=== PATIENT | male | born 1990 | race African-American/Black ===

== ENCOUNTER 2019-04-12 19:50 | Inpatient (IN) ==
[2019-04-12] MEDS ORDERED: KETOROLAC TROMETHAMINE 15 MG/ML VIAL IV STA (20:13)
[2019-04-12] MEDS ORDERED: cefTRIAXone SODIUM 1,000 MG/50 ML BAG IV STA (20:13)
[2019-04-12] MEDS ORDERED: LIDOCAINE HCL 1% 20 ML VIAL INFIL ONE (20:14)
[2019-04-12] MEDS ORDERED: SODIUM CHLORIDE 0.9% 1000ML 1,000 ML IV SCH (20:15)
[2019-04-12 20:52] LABS: Basophils # (auto) 0.01 K/uL (0-0.2); Basophils % (auto) 0.2 %; Eosinophils # (auto) 0.01 K/uL (0-0.5); Eosinophils % (auto) 0.2 %; Hematocrit (blood only) 44.7 % (42-52); Hemoglobin 15.9 g/dL (14.0-18.0); Immature Granulocytes # (auto) 0.03 K/uL (0.00-0.02); Immature Granulocytes % (auto) 0.5 %; Lymphocytes # (auto) 0.89 K/uL (1.2-3.4); Lymphocytes % (auto) 15.2 %; Mean Corpuscular Hgb Conc 35.6 g/dL (32-36); Mean Platelet Volume 9.2 fL (7.4-10.4); Monocytes # (auto) 0.49 K/uL (0.11-0.59); Monocytes % (auto) 8.4 %; Neutrophils # (auto) 4.43 K/uL (1.4-6.5); Neutrophils % (auto) 75.5 %; Platelet Count 227 K/uL (130-400); RDW Coefficient of Variation 13.1 % (11.5-14.5); RDW Standard Deviation 39.2 fL (36.4-46.3); Red Blood Count 5.52 M/uL (4.7-6.1); White Blood Count 5.86 K/uL (4.8-10.8)
[2019-04-12 20:56] LABS: Alanine Aminotransferase 23 U/L (12-78); Albumin Level 3.5 gm/dl (3.4-5.0); Aspartate Aminotransferase 18 U/L (15-37); BUN Creatinine Ratio 9.8 (10-20); Blood Urea Nitrogen 13 mg/dl (7-18); C Reactive Protein 2.64 mg/dl (0-0.29); Calcium 8.7 mg/dl (8.5-10.1); Carbon Dioxide 28 mmol/L (21-32); Chloride 103 mmol/L (98-107); Creatinine Clr Calc Pharmacy 113.1 ml/min; Est GFR (African American) 85.1; Est GFR (Non-African American) 73.4; Glucose 97 mg/dl (70-99); Potassium 3.6 mmol/L (3.5-5.1); Sodium 137 mmol/L (136-145)
[2019-04-12 21:00] LABS: Albumin Globulin Ratio 0.9 (0.9-2); Alkaline Phosphatase 78 U/L (45-117); Bilirubin,Total 0.4 mg/dl (0.2-1); Globulin 3.8 gm/dl (2.5-4.0); Total Protein 7.3 gm/dl (6.4-8.2); Troponin I < 0.015 ng/ml (0-0.045)
--- NOTE | 2019-04-12 22:13 | Emergency Department Note ---
Entered by Liliana Hung acting as a scribe for History of Present Illness General Chief complaint: Fever Stated complaint: FEVER, CHEST TIGHT, TOOTHACHE, HEADACHE Source: patient Mode of arrival: ambulatory Limitations: no limitations History of Present Illness Onset (ago): day(s) 2 Location: face (right-sided lower jaw ) Pain Consistency: + other (worsening ) Maximum Pain Intensity: 9 Relieved By: not by medication (Amoxicillin, Advil) Associated symptoms: + nausea/vomiting (nausea ) Treatments prior to arrival: other (4 Advil ) The patient is a 29 year old male who presents to the ED with complaints of worsening right-side lower jaw pain for 2 days now. The patient states that he also has swelling of his right lower jaw. He reports that he is experiencing occasional nausea. He states that he has a fever of 102. The patient reports that he had a tooth pulled a long time ago and it got infected. He reports that he went to a hospital in [place] where he was prescribed Amoxicillin. He reports that he took it this morning and started to feel warm and sweaty. He states that he took 4 Advil to relieve the pain and felt no relief. The patient denies any drainage from his mouth. Home Medications Home Medications Medication Instructions Recorded Confirmed Type ibuprofen [Advil] 800 mg PO Q8H PRN 04/12/19 04/12/19 History Allergies Allergy/AdvReac Type Severity Reaction Status Date / Time amoxicillin [From Amoxil] AdvReac Mild Nausea Verified 04/12/19 21:05 Past Med/Surg History Medical History No known health problems Family History Other No significant family history Social History Preferred Language: Luxembourgish Feels Safe at Home: Yes Smoking Status: Current every day smoker Review of Systems See HPI for pertinent positives & negatives. and A total of 10 systems reviewed and were otherwise negative Physical Exam Vital Signs Vital Signs - 24 hr 04/12/19 19:54 04/12/19 21:14 04/12/19 22:10 Temperature 38.9 C H 38.9 C H Temperature Source Oral Oral Sepsis Recent Fever Within 48 Hours Yes Sepsis New/Unexplained Change in Mental Status No Sepsis Action Taken by Nursing No Action Required Pulse Rate 100 H Pulse Rate [Finger] 91 H 91 H Pulse Rhythm Regular Pulse Strength Normal Respiratory Rate 20 16 16 Respiratory Effort / Characteristics Non-Labored Spontaneous Respiratory Depth Normal Normal Respiratory Pattern Regular Blood Pressure 139/86 Blood Pressure [Left Arm] 148/83 H 149/92 H Blood Pressure Mean 103 Blood Pressure Mean [Left Arm] 104 111 Blood Pressure Position Sitting Pulse Oximetry 98 97 98 Oxygen Delivery Method Room Air Room Air Room Air 04/12/19 22:48 Temperature 39.0 C H Temperature Source Oral Sepsis Recent Fever Within 48 Hours Sepsis New/Unexplained Change in Mental Status Sepsis Action Taken by Nursing Pulse Rate Pulse Rate [Finger] 90 Pulse Rhythm Pulse Strength Respiratory Rate 16 Respiratory Effort / Characteristics Respiratory Depth Respiratory Pattern Blood Pressure Blood Pressure [Left Arm] 149/92 H Blood Pressure Mean Blood Pressure Mean [Left Arm] 111 Blood Pressure Position Pulse Oximetry 98 Oxygen Delivery Method Room Air GENERAL: Patient is awake alert in no acute distress patient is resting comfortably and showing no signs of anxiety EYES: The conjunctivae are clear. The pupils are round and reactive. EARS, NOSE, MOUTH AND THROAT: There is swelling at the gumline on the right lo wer dentition. There is tenderness over the right lower mandible. NECK: The neck is nontender and supple. Cervical adenopathy was noted on the right. RESPIRATORY: Normal respiratory effort is noted there is no evidence of wheezing rhonchi or rales CARDIOVASCULAR: Regular rate and rhythm noted there no murmurs rubs or gallops normal S1 normal S2 BACK: No midline tenderness or or step-off noted range of motion in flexion extension as well as rotation no signs of muscle spasm noted MUSCULOSKELETAL/EXTREMITIES: There is no evidence of gross deformity full range of motion is noted in the hips and shoulders SKIN: There is no obvious evidence of any rash. There are no petechiae, pallor or cyanosis noted. NEUROLOGIC: Patient is awake alert and oriented x3. Course 2006: Past medical records reviewed. The patient was evaluated in room B10. A complete history and physical exam was performed. 2149: I reevaluated the patient at this time and he is resting comfortably. I drained the abscess in the patient's mouth to relieve the pain in his right lower jaw. 2224: I discussed the patients case with Pretty Mota. He agreed that the patient should be admitted for further management. He also agreed to see the patient tomorrow to complete and an IND. 2239: I discussed the patients case with Pretty Fisher. He agreed to evaluate the patient for further management. Consultations Consultation #1: I discussed the patients case with Pretty Mota. He agreed that the patient should be admitted for further management. He also agreed to see the patient tomorrow to complete and an IND. Time: 22:25 Consultation #2: I discussed the patients case with Pretty Fisher. He agreed to evaluate the patient for further management. Time: 22:39 Administered Medications Morphine Sulfate (Morphine Sulfate) 4 mg IV Q15M PRN PRN Reason: Pain Stop: 04/26/19 22:35 Last Admin: 04/12/19 22:46 Dose: 4 mg Documented by: [id number] Discontinued Medications Acetaminophen (Tylenol) Confirm Administered Dose 1,000 mg .ROUTE .STK-MED ONE Stop: 04/12/19 22:54 Last Admin: 04/12/19 22:54 Dose: 1,000 mg Documented by: [id number] Acetaminophen (Tylenol) 1,000 mg PO NOW STA Stop: 04/12/19 22:56 Last Admin: 04/12/19 22:55 Dose: Not Given Documented by: [id number] Ceftriaxone Sodium (Rocephin) 1,000 mg in 50 mls @ 100 mls/hr IV NOW STA Stop: 04/12/19 20:42 Last Infusion: 04/12/19 21:00 Dose: 0 mls/hr Documented by: [id number] Admin: 04/12/19 20:29 Dose: 100 mls/hr Documented by: [id number] Sodium Chloride (Nss 1000ml) 1,000 mls @ 999 mls/hr IV .Q1H1M ZOEY Stop: 04/12/19 21:15 Last Infusion: 04/12/19 21:30 Dose: 0 mls/hr Documented by: [id number] Admin: 04/12/19 20:29 Dose: 999 mls/hr Documented by: [id number] Ketorolac Tromethamine (Toradol) 15 mg IV NOW STA Stop: 04/12/19 20:14 Last Admin: 04/12/19 20:28 Dose: 15 mg Documented by: [id number] Lidocaine HCl (Xylocaine 1% (Local)) 10 ml INFIL NOW ONE Stop: 04/12/19 20:15 Last Admin: 04/12/19 20:31 Dose: 10 ml Documented by: [id number] Ondansetron HCl (Zofran) 4 mg IV NOW STA Stop: 04/12/19 22:37 Last Admin: 04/12/19 22:45 Dose: 4 mg Documented by: [id number] Medical Decision Making Medical Records Attestation: I reviewed the patient's medical records. Home Medications Current Medication List: was personally reviewed by me Laboratory Data Attestation: I reviewed the patient's lab results. Result diagrams: 04/12/19 20:23 04/12/19 20:23 Lab Results 04/12/19 04/12/19 04/12/19 Range/Units 20:23 20:23 20:23 WBC 5.86 (4.8-10.8) K/uL RBC 5.52 (4.7-6.1) M/uL Hgb 15.9 (14.0-18.0) g/dL Hct 44.7 (42-52) % MCV 81.0 (80-100) fL MCH 28.8 (25-34) pg MCHC 35.6 (32-36) g/dL RDW Std Deviation 39.2 (36.4-46.3) fL RDW Coeff of Gabe 13.1 (11.5-14.5) % Plt Count 227 (130-400) K/uL MPV 9.2 (7.4-10.4) fL Immature Gran % (Auto) 0.5 % Neut % (Auto) 75.5 % Lymph % (Auto) 15.2 % [place] % (Auto) 8.4 % Eos % (Auto) 0.2 % Baso % (Auto) 0.2 % Immature Gran # (Auto) 0.03 H (0.00-0.02) K/uL Neut # (Auto) 4.43 (1.4-6.5) K/uL Lymph # (Auto) 0.89 L (1.2-3.4) K/uL [place] # (Auto) 0.49 (0.11-0.59) K/uL Eos # (Auto) 0.01 (0-0.5) K/uL Baso # (Auto) 0.01 (0-0.2) K/uL ESR 35 H (0-14) mm/hr Sodium 137 (136-145) mmol/L Potassium 3.6 (3.5-5.1) mmol/L Chloride 103 (98-107) mmol/L Carbon Dioxide 28 (21-32) mmol/L Anion Gap 6.0 (3-11) BUN 13 (7-18) mg/dl Creatinine 1.29 (0.6-1.4) mg/dl Est Cr Clr Drug Dosing 113.1 ml/min Est GFR ( Amer) 85.1 Est GFR (Non-Af Amer) 73.4 BUN/Creatinine Ratio 9.8 L (10-20) Glucose 97 (70-99) mg/dl Calcium 8.7 (8.5-10.1) mg/dl Total Bilirubin 0.4 (0.2-1) mg/dl AST 18 (15-37) U/L ALT 23 (12-78) U/L Alkaline Phosphatase 78 (45-117) U/L Troponin I < 0.015 (0-0.045) ng/ml C-Reactive Protein 2.64 H (0-0.29) mg/dl Total Protein 7.3 (6.4-8.2) gm/dl Albumin 3.5 (3.4-5.0) gm/dl Globulin 3.8 (2.5-4.0) gm/dl Albumin/Globulin Ratio 0.9 (0.9-2) ECG Data Indication: other (right lower jaw pain ) Rate (beats per minute): 95 Rhythm: normal sinus Findings: no PAC, no PVC, no ST depression, no ST elevation, no acute ischemic change and no ectopy Comparison ECG Date: no prior available Blood Pressure Blood Pressure Findings: Elevated blood pressure Blood Pressure Disposition: further management by hospitalist [facility] Narrative The patient is a 29-year-old male who presented to the emergency department for an evaluation of dental pain. The patient had very significant dental pain which began a few days ago. 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 The patient presents to the emergency department today with worsening swelling worsening pain and fever. Patient was treated with IV fluids and IV pain medication in the emergency department. He was also started on a different IV antibiotic. A dental block was placed with an attempt made to incise and drain the abscess. There was a cut made along the right lower gumline. There was some bleeding but no significant purulent drainage. The patient was having significant pain and did not tolerate the procedure well. For this reason I discussed his case with the on-call oral maxillofacial specialist. Given the patient's ongoing symptoms he did recommend that we consider keeping the patient in the inpatient setting overnight and he could be evaluated in the morning for possible incision and drainage or possible dental extraction. I discussed this plan with the patient he was agreeable. I also discussed this case with the on-call [facility] hospitalist. They have agreed to evaluate the patient in the emergency department for further management and disposition. Impression & Plan Dental abscess, Fever Discharge Plan Visit Data Chief Complaint: Fever Stated Complaint: FEVER, CHEST TIGHT, TOOTHACHE, HEADACHE ED Provider: Guicho Maxwell Discharge Problem: Dental abscess, Fever Patient Disposition: Being Evaluated by Hospitalist Forms Stand Alone Forms: My [facility] Prescriptions Prescriptions: No Action ibuprofen [Advil] 200 mg Tablet 800 mg PO Q8H PRN (Reason: Fever Or Pain) RF: 0 Referrals Referrals: PCP,NO [Primary Care Provider] - Discharge Problem: Fever Qualifiers: Fever type: unspecified Qualified Code(s): R50.9 - Fever, unspecified The scribe's documentation has been prepared under my direction and personally reviewed by me in its entirety. I confirm that the note above accurately reflects all work, treatment, procedures, and medical decision making performed by me.
[2019-04-12] MEDS ORDERED: MoRPHine SULFATE 4 MG/ML 1 ML CARP\\VIAL IV PRN (22:36)
[2019-04-12] MEDS ORDERED: ONDANSETRON INJ 2 MG/ML 2 ML VIAL IV STA (22:36)
[2019-04-12] MEDS ORDERED: ACETAMINOPHEN 500 MG TAB ONE (22:53)
[2019-04-12] MEDS ORDERED: ACETAMINOPHEN 500 MG TAB PO STA (22:55)
--- NOTE | 2019-04-13 00:07 | History and Physical Report ---
DATE OF ADMISSION: 04/12/2019 CHIEF COMPLAINT: Dental abscess. HISTORY OF PRESENT ILLNESS: This is a 29-year-old male with no past medical history who presents with dental abscess. Patient is having pain in his right side of his lower jaw for the last 3-4 days. 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 He went to outside hospital and was prescribed amoxicillin which he started taking yesterday, but he was not feeling better. Still having swelling and severe pain and was having temperatures, so he came here and was spiking temperature at T-max 39. In the ER, dental block was given and I and D was attempted , but it was not successful. ER physician spoke with oral maxillofacial surgery and advised to be admitted to the hospital and will be evaluated in the a.m. Currently, patient complains of severe pain and asks for pain medications. Has headaches, no blurred visions. Has earaches on the right side, some sore throat, some cough, some mucus coming out. He had some chest pain on the left side, he thinks he pulled a muscle a few days ago. No shortness of breath. No nausea, no vomiting, no abdominal pain. Normal bowel and bladder movements. No blood in the stools or black stools. No burning micturition. No swelling in the legs, no rash. Currently resting comfortably and hemodynamically stable. ALLERGIES: AMOXICILLIN CAUSES NAUSEA. PAST MEDICAL HISTORY: None. PAST SURGICAL HISTORY: Had some tendon repair on his right forearm. MEDICATIONS: None. FAMILY HISTORY: Grandmother had open heart surgery and pacemaker. SOCIAL HISTORY: Smokes a few cigarettes. Last he smoked was 1 week ago. Denies any alcohol use, no drug use. REVIEW OF SYMPTOMS: As per HPI. Rest of review of systems negative. PHYSICAL EXAMINATION: GENERAL: The patient is of moderate build, not in acute distress. VITAL SIGNS: Temperature T-max 39, pulse 90, respiratory rate 16, blood pressure 149/92, oxygen 98% room air. HEENT: No pallor, no icterus. Pupils equal, round, reactive to light. Oral mucosa, difficult to open the mouth, swelling in the right side of the face seen. NECK: No JVD, no neck masses, no carotid bruits. CARDIOVASCULAR: S1, S2 heard, regular rate and rhythm, no murmur, no gallop. RESPIRATORY SYSTEM: Normal AP diameter. No accessory muscle use. No wheezing, no crackles. ABDOMEN: Soft, bowel sounds present. Nontender, no distention. CENTRAL NERVOUS SYSTEM: Cranial nerves II-XII grossly intact. Nonfocal. EXTREMITIES: No edema, no erythema. LABORATORY DATA: WBC 5.8, hemoglobin 15.9, hematocrit 44.7, platelets 227. Sodium 137, potassium 3.6, chloride 103, bicarbonate 28, BUN 13, creatinine 1.29, serum glucose 97, calcium 8.7, total bilirubin 0.4, AST 18, ALT 23, alkaline phosphatase 72. Troponin I less than 0.015. C-reactive protein 2.6. ASSESSMENT AND PLAN: This is a 29-year-old male who presents with right-sided dental abscess. 1. Dental abscess in the right lower jaw. Failed outpatient treatment with amoxicillin. Having fever. Failed attempt in the ER. We will admit to medical floor. Keep him n.p.o., IV fluids, IV Zosyn, IV antiemetics p.r.n., IV pain meds p.r.n. and consult oral maxillofacial surgery in the a.m. 2. Deep venous thrombosis prophylaxis, sequential compression devices for now. 3. Disposition: Admit to medical floor. Expect to discharge home and follow with his family doctor. Level 1 full code. MTDD
[2019-04-13] MEDS ORDERED: PIPERACILL/TAZOBAC CONSULT ACTIVE PRN (00:13)
[2019-04-13] MEDS ORDERED: ACETAMINOPHEN 65 ML IV PRN (00:13)
[2019-04-13] MEDS ORDERED: ONDANSETRON INJ 2 MG/ML 2 ML VIAL IV PRN ×3 (00:13→18:11)
[2019-04-13] MEDS ORDERED: PIPERACILLIN/TAZOBACTAM 3.375 GM in DEXTROSE 5% 100 ML IV SCH (00:13)
[2019-04-13] MEDS ORDERED: PIPERACILLIN/TAZOBACTAM 3.375 GM in DEXTROSE 5% 100 ML IV ONE (00:30)
[2019-04-13] MEDS: D5W AND NSS 1,000 ML IV SCH ×3 (01:10→20:09)
[2019-04-13] MEDS: HYDROmorphone INJ 0.5 MG/0.5 ML SYR IV PRN ×4 (01:10→23:57)
[2019-04-13] MEDS: PIPERACILLIN/TAZOBACTAM 3.375 GM in DEXTROSE 5% 100 ML IV SCH ×3 (05:21→21:57)
[2019-04-13 05:43] LABS: Basophils # (auto) 0.02 K/uL (0-0.2); Basophils % (auto) 0.4 %; Eosinophils # (auto) 0.01 K/uL (0-0.5); Eosinophils % (auto) 0.2 %; Hemoglobin 17.9 g/dL (14.0-18.0); Immature Granulocytes # (auto) 0.01 K/uL (0.00-0.02); Immature Granulocytes % (auto) 0.2 %; Lymphocytes # (auto) 1.12 K/uL (1.2-3.4); Lymphocytes % (auto) 19.9 %; Mean Corpuscular Hgb Conc 35.1 g/dL (32-36); Mean Corpuscular Volume 82.9 fL (80-100); Monocytes # (auto) 0.32 K/uL (0.11-0.59); Monocytes % (auto) 5.7 %; Neutrophils # (auto) 4.15 K/uL (1.4-6.5); Neutrophils % (auto) 73.6 %; Platelet Count 199 K/uL (130-400); RDW Coefficient of Variation 13.1 % (11.5-14.5); Red Blood Count 6.15 M/uL (4.7-6.1); White Blood Count 5.63 K/uL (4.8-10.8)
[2019-04-13 06:01] LABS: BUN Creatinine Ratio 8.6 (10-20); Calcium 8.2 mg/dl (8.5-10.1); Creatinine Clr Calc Pharmacy 108.3 ml/min; Est GFR (African American) 81.2; Est GFR (Non-African American) 70.1; Magnesium 1.9 mg/dl (1.8-2.4); Potassium 3.7 mmol/L (3.5-5.1)
--- NOTE | 2019-04-13 07:00 | Surgery Progress Note ---
Date of Service I will be seeing patient in room 360 bed 1 for evaluation of infection due to teeth I discussed with ED physician last night . Please obtain X Rays=as I need to see condition of the teeth to determine the cause of the facial infection and tooth. Please inform radiology dept that may main concern is the condition of the teeth. April 13, 2019 Results & Data Vital Signs (Past 12 Hours) Vital Signs Temp Pulse Pulse Resp BP BP Pulse Ox 04/13/19 05:00 37.5 C 04/13/19 00:36 38.5 C H 93 H 16 167/85 H 95 04/12/19 23:55 39.5 C H 87 20 152/76 H 97 04/12/19 22:48 39.0 C H 90 16 149/92 H 98 04/12/19 22:10 38.9 C H 91 H 16 149/92 H 98 04/12/19 21:14 91 H 16 148/83 H 97 04/12/19 19:54 38.9 C H 100 H 20 139/86 98
--- NOTE | 2019-04-13 08:04 | XRay Report ---
XR mandible min 4V routine CLINICAL HISTORY: need to evaluate condition of teeth COMPARISON STUDY: None. FINDINGS: There is 1.2 cm periapical lucency within the most distal right mandibular molar with compl ete lysis/destruction of the crown consistent with a large vera. There is an additional large vera involving a left maxillary tooth, likely ADA 13. IMPRESSION: 1. A 1.2 cm periapical lucency within the most distal right mandibular molar with complete lysis/dest ruction of the crown-rump. 2. There is an additional large vera at ADA 13. Electronically signed by: Micah Brush M.D. 04/13/2019 8:02 AM
--- NOTE | 2019-04-13 09:56 | Surgery Consultation ---
Date of Consultation April 13, 2019 I reviewed the x rays and noted abscessed and decayed teeth. # 32 is fractured and is the main cause of the infection lower right side, There is a draining fistula of # 13 and # 17 . He has edema and trismus secondary to the infection that failed out patient treatment. I will take him to the OR today (add on to OR ) [facility] MANUEL for I&D and extraction of the fractured abscessed teeth. PLAN: Keep NPO, shave face, sign consent, OR notified I will follow but expect Discharge tomorrow with oral pain mandy and antibiotics History of Present Illness Attending Physician: María Elena Desouza Allergies Allergy/AdvReac Type Severity Reaction Status Date / Time amoxicillin [From Amoxil] AdvReac Mild Nausea Verified 04/12/19 21:05 Home Medications Home Medications Medication Instructions Recorded Confirmed Type ibuprofen [Advil] 800 mg PO Q8H PRN 04/12/19 04/12/19 History Patient History Medical History No known health problems Family History Other No significant family history Social History Preferred Language: Moldovan Communication Ability: Effective Food Runner Required: No Beliefs That Will Affect Care: None Current Living Situation: Spouse Other Information That Helps Us Care for You: No Feels Safe at Home: Yes Smoking Status: Current some day smoker Tobacco Type: cigars Do You Dip or Chew Tobacco: No Tobacco Cessation Education Requested by Patient: No Hx Alcohol Use: No Hx Substance Use: No Results & Data Vital Signs (Past 12 Hours) Vital Signs Temp Pulse Resp BP Pulse Ox 04/13/19 08:00 38.7 C H 95 H 18 134/84 97 04/13/19 05:00 37.5 C 04/13/19 00:36 38.5 C H 93 H 16 167/85 H 95 04/12/19 23:55 39.5 C H 87 20 152/76 H 97 04/12/19 22:48 39.0 C H 90 16 149/92 H 98 04/12/19 22:10 38.9 C H 91 H 16 149/92 H 98
--- NOTE | 2019-04-13 13:39 | Anesthesiology Consultation ---
Date of Service April 13, 2019 Smoker Obesity Assessment & Plan Chart Review Chart Review: Acceptable Risk for Surgery and Patient NOT seen in Pre Admission Testing Consults Requested none Proposed Anesthesia Risk / Benefits Reviewed With: PT / POA / Parent / Guardian, Accepts Plan and Informed Consent Obtained History Surgery Operation Date: 04/13/19 12:00 Proposed Procedures p Incision and Drainage with Removal of Multiple Carious Teeth - Yony Carey, DMD Height/Weight Height: 6 ft 2 in Weight: 116.4 kg Allergies Allergy/AdvReac Type Severity Reaction Status Date / Time amoxicillin [From Amoxil] AdvReac Mild Nausea Verified 04/12/19 21:05 Medications Home Medications Medication Instructions Recorded Confirmed Last Taken ibuprofen [Advil] 800 mg PO Q8H PRN 04/12/19 04/12/19 Unknown Active Medications Generic Name Dose Route Start Last Admin Trade Name Freq PRN Reason Stop Dose Admin Hydromorphone HCl 0.5 mg 04/13/19 00:13 04/13/19 08:17 Dilaudid IV 04/27/19 00:12 0.5 mg Q3H PRN Administration Pain Dextrose/Sodium Chloride 1,000 mls @ 125 mls/hr 04/13/19 00:13 04/13/19 08:22 D5w And Nss IV 05/13/19 00:12 125 mls/hr .Q8H ZOEY Administration Acetaminophen 65 mls @ 200 mls/hr 04/13/19 00:13 04/13/19 11:01 Ofirmev IV 05/13/19 00:12 Infused Q6H PRN Infusion Pain or Fever Piperacillin Sod/Tazobactam 115 mls @ 28.75 mls/hr 04/13/19 06:00 04/13/19 12:59 Sod 3.375 gm/ Dextrose IV 04/23/19 05:59 28.8 mls/hr Q8 ZOEY Administration Protocol NPO Date Last Intake of Fluids: 04/13/19 Time Last Intake of Fluids: 00:30 Date Last Intake of Solids: 04/13/19 Time Last Intake of Solids: 00:30 Past Medical History Medical History No known health problems Exercise / Class Metabolic Activity II 4-5 Yardwork/Stairs/Walk up hill Past Family History Family History Other No significant family history Past Surgical History Surgical History History of surgery on arm Past Anesthesia History No Hx of Anesthesia Complications and No Family Hx of Anesthesia Complications History of PONV No Hx of PONV and No Hx of Motion Sickness Social History Smoking Status: Current some day smoker tobacco type: cigars Do You Dip or Chew Tobacco: No Hx Alcohol Use: No Hx Substance Use: No substance use type: does not use Physical Exam Vital Signs Last Vital Signs Temp 38.7 C H 04/13/19 08:00 Pulse 95 H 04/13/19 08:00 Resp 18 04/13/19 08:00 BP 134/84 04/13/19 08:00 Pulse Ox 97 04/13/19 08:00 ENMT Mouth: no dentition abnormality Thyromental Distance: > or= 3.5 Finger Breadths Mallampati Class: IV (secondary to pain) Neck normal visual inspection Respiratory normal respiratory effort Auscultation: lungs clear to auscultation bilaterally Cardiovascular Rate/Rhythm: regular rate and regular rhythm Psychiatric Orientation: alert Testing Laboratory Results 04/13/19 05:25 04/13/19 05:25 04/12/19 22:35 Gram Stain - Final Mouth
[2019-04-13] MEDS ORDERED: ACETAMINOPHEN 1000 MG/100 ML IV IV ONE (15:49)
[2019-04-13] MEDS ORDERED: OXYMETAZOLINE 0.05% 30 ML BTL ONE (15:49)
--- NOTE | 2019-04-13 15:51 | Hospitalist Progress Note ---
Date of Service April 13, 2019 Assessment & Plan (1) Dental abscess: Patient is a 29-year-old male with no past medical history who presented with dental abscess. Went to a hospital where he was prescribed amoxicillin, took it for a day, continued to have pain, started spiking fever 39 C. Unsuccessful attempt of I&D was done in ED. Failed outpatient rx with amoxicillin S/P I & D of dental abscess - lower right side with extraction of teeth # 32, 18, 13 -Tmax 39.5 C; No leucocytosis -Full liquid diet or soft diet tonight -Heat compress and massage -On IV Zosyn- Day 2 -IV Fluids -Oral maxillofacial surgery inputs appreciated- For discharge in AM on Clindamycin 300 mg TID X 8 days, Vicodin 5/325 mg 4-6 hours prn for pain DVT PROPHYLAXIS SCDS DISPOSITION Medical mx in progress S/P Procedure today Likely discharge in AM Subjective Patient was evaluated in PACU Still sedated. No fever Vitals - Stable Physical Exam Physical Exam: GENERAL- Still sedated + LUNGS- Air entry bilaterally equal. No rales, rhonchi, crackles, wheezes heard. HEART- Regular rate and rhythm. No murmurs EXTREMITIES- No edema Results & Data Vital Signs (Past 12 Hours) Vital Signs Temp Pulse Resp BP Pulse Ox 04/13/19 15:06 37 C 78 16 139/92 97 04/13/19 08:00 38.7 C H 95 H 18 134/84 97 04/13/19 05:00 37.5 C
[2019-04-13] MEDS ORDERED: HYDROmorphone INJ 2 MG/ML SYR/VIAL ONE ×2 (16:06→17:51)
[2019-04-13] MEDS ORDERED: LIDOCAINE HCL 2% 2 ML VIAL/AMP(20MG/ML) INFIL ONE (16:06)
[2019-04-13] MEDS ORDERED: fentaNYL citrate 100 MCG/2 ML VIAL ONE (16:06)
[2019-04-13] MEDS ORDERED: PROPOFOL IV EMULSION 10 MG/ML 20 ML VIAL IV ONE (16:06)
[2019-04-13] MEDS ORDERED: MIDAZOLAM HCL 1 MG/ML 2ML VIAL ONE ×2 (16:09→16:57)
[2019-04-13] MEDS ORDERED: MEPERIDINE HCL 25 MG/ML CARP IV PRN (16:42)
[2019-04-13] MEDS ORDERED: HYDROmorphone INJ 1 MG/ML SYRINGE IV PRN (16:42)
[2019-04-13] MEDS ORDERED: fentaNYL citrate 100 MCG/2 ML VIAL IV PRN (16:42)
[2019-04-13] MEDS ORDERED: ePHEDrine sulfate 50 MG/ML AMP IV PRN (16:42)
[2019-04-13] MEDS ORDERED: ATROPINE SULFATE 0.1 MG/ML 10ML SYR IV PRN (16:42)
[2019-04-13] MEDS ORDERED: LABETALOL HCL IV 5 MG/ML 20ML IV PRN (16:42)
[2019-04-13] MEDS ORDERED: PHENYLEPHRINE 100MCG/ML 5ML SYR IV PRN (16:42)
[2019-04-13] MEDS ORDERED: BUPIVACAINE/EPINEPHRINE 0.5% 1:200,000 1.8 ML CARP ONE (16:58)
--- NOTE | 2019-04-13 16:59 | History & Physical Bridge Note ---
Date of Service April 13, 2019 History & Physical Bridge Note I have examined the patient, reviewed the History & Physical and in the interval since the performance of the History & Physical I have noted the following changes of clinical significance: no changes noted
[2019-04-13] MEDS ORDERED: CHLORHEXIDINE GLUCONATE 0.12% 480 ML ONE (17:15)
[2019-04-13] MEDS ORDERED: ESMOLOL HCL INJ 10 MG/ML 10ML VIAL IV ONE (17:24)
[2019-04-13] MEDS ORDERED: DEXAMETHASONE SOD INJ 4 MG/ML VIAL ONE (17:25)
[2019-04-13] MEDS ORDERED: GLYCOPYRROLATE 0.2 MG/ML VIAL ONE ×2 (17:25→18:06)
[2019-04-13] MEDS ORDERED: ONDANSETRON INJ 2 MG/ML 2 ML VIAL ONE (17:25)
[2019-04-13] MEDS ORDERED: NEOSTIGMINE METHYLSULFATE 5 MG/5 ML SYR ONE (18:06)
--- NOTE | 2019-04-13 18:09 | Post Operative Brief Note ---
Immediate Post Op Note v1 Date of Surgery April 13, 2019 Pre & Post Diagnosis Operation Date: 04/13/19 12:00 Pre-Op Diagnosis: Tooth fracture #32, draining fistula of teeth #13 and #18, submandibular abscess right side Post-Op Diagnosis: Tooth fracture #32, draining fistula of teeth #13 and #18, submandibular abscess right side Procedure Operation Date: 04/13/19 12:00 Actual Procedures p Incision and Drainage of right massitor space/subperiosteal space and mandibular space from infected # 32 Removal of Multiple Carious Teeth # 13 and # 18 C&S of pus and drainage. (Not Applicable) - Yony Carey, DMD Surgeon Yony Carey, DMD Picking Crew Supervisor none Estimated Blood Loss 10 Findings Consistent with Post-Op Diagnosis
--- NOTE | 2019-04-13 18:24 | Surgery Progress Note ---
Date of Service I was able to get excellent drainage of the abscess lower right side. I extracted teeth # 32,18 and 13. I would suggest he be started on a full liquid or soft diet tonight. Heat compress and massage is also suggested. As for Discharge--if he is comfortable tomorrow AM he can be D/C. I would suggest Clindamycin 300 mg Q hrs x 24, Vicodin 5/325 x 15 1 q 4-6 hrs prn pain I will evaluate in AM. Thanks Yony Carey April 13, 2019 Results & Data Vital Signs (Past 12 Hours) Vital Signs Temp Pulse Resp BP Pulse Ox 04/13/19 16:54 37.7 C H 86 16 146/94 H 98 04/13/19 16:36 38.4 C H 75 20 156/96 H 98 04/13/19 15:06 37 C 78 16 139/92 97 04/13/19 08:00 38.7 C H 95 H 18 134/84 97
--- NOTE | 2019-04-13 19:07 | Anesthesiology Progress Note ---
Date of Service April 13, 2019 Anesthesia Post Procedure Vital Signs Vital Signs: Temp Pulse Pulse Pulse Resp BP BP 04/13/19 18:55 66 12 142/88 H 04/13/19 18:45 67 12 137/92 04/13/19 18:35 67 16 155/95 H 04/13/19 18:28 36.7 C 72 16 144/96 H 04/13/19 16:54 37.7 C H 86 16 146/94 H 04/13/19 16:36 38.4 C H 75 20 156/96 H 04/13/19 15:06 37 C 78 16 139/92 04/13/19 08:00 38.7 C H 95 H 18 134/84 04/13/19 05:00 37.5 C 04/13/19 00:36 38.5 C H 93 H 16 167/85 H 04/12/19 23:55 39.5 C H 87 20 152/76 H 04/12/19 22:48 39.0 C H 90 16 149/92 H 04/12/19 22:10 38.9 C H 91 H 16 149/92 H 04/12/19 21:14 91 H 16 148/83 H 04/12/19 19:54 38.9 C H 100 H 20 139/86 Pulse Ox 04/13/19 18:55 94 04/13/19 18:45 100 04/13/19 18:35 98 04/13/19 18:28 98 04/13/19 16:54 98 04/13/19 16:36 98 04/13/19 15:06 97 04/13/19 08:00 97 04/13/19 05:00 04/13/19 00:36 95 04/12/19 23:55 97 04/12/19 22:48 98 04/12/19 22:10 98 04/12/19 21:14 97 04/12/19 19:54 98 Pain Intensity Generalized: Pain Intensity: 3 Transfer of Care Handoff Completed per policy Notes Mental Status: alert / awake / arousable Patient Amnestic to Procedure: Yes Nausea / Vomiting: adequately controlled Pain: adequately controlled Airway Patency, RR, SpO2: stable & adequate BP & HR: stable & adequate Hydration State: stable & adequate Anesthetic Complications: no major complications apparent and Pt Satisfied with anesthetic care
[2019-04-13] MEDS: CHLORHEXIDINE GLUCONATE 0.12% 480 ML MT SCH (22:13)
[2019-04-13] MEDS: ACETAMINOPHEN 325 MG TAB PO PRN (22:21)
[2019-04-14 03:20] VITALS: O2SAT 97
[2019-04-14] MEDS: D5W AND NSS 1,000 ML IV SCH ×3 (03:49→15:30)
[2019-04-14] MEDS: PIPERACILLIN/TAZOBACTAM 3.375 GM in DEXTROSE 5% 100 ML IV SCH (05:14)
[2019-04-14] MEDS: HYDROmorphone INJ 0.5 MG/0.5 ML SYR IV PRN (05:15)
[2019-04-14] MEDS: ACETAMINOPHEN 325 MG TAB PO PRN (07:38)
[2019-04-14] MEDS: CHLORHEXIDINE GLUCONATE 0.12% 480 ML MT SCH (08:36)
--- NOTE | 2019-04-14 10:21 | Surgery Progress Note ---
Date of Service Jeremiah is doing very well. Minimal pain, swelling improved, extraction sites=excellent PLAN==OK for discharge today--Hospitalist service to give pain meds and Antibiotics for home use for at least 1 week. OK for D/C once seen by hospital service. EXCELLENT response to I&D and extractions April 14, 2019 Results & Data Vital Signs (Past 12 Hours) Vital Signs Temp Pulse Resp BP Pulse Ox 04/14/19 07:03 36.5 C 67 15 122/76 97 04/14/19 03:18 36.7 C 64 16 129/79 97 04/13/19 23:23 36.5 C 75 16 148/81 H 98
[2019-04-14 11:15] VITALS: BP 138/84; PULSE 59; TEMP 97.3
[2019-04-14] MEDS ORDERED: CLINDAMYCIN HCL 150 MG CAP PO SCH (14:00)
--- NOTE | 2019-04-14 14:17 | Hospitalist Progress Note ---
Date of Service April 14, 2019 Assessment & Plan (1) Dental abscess: Patient is a 29-year-old male with no past medical history who presented with dental abscess. Went to a hospital where he was prescribed amoxicillin, took it for a day, continued to have pain, started spiking fever 39 C. Unsuccessful attempt of I&D was done in ED. Failed outpatient rx with amoxicillin S/P I & D of dental abscess - lower right side with extraction of teeth # 32, 18, 13 -Tmax 39.5 C; No leucocytosis -Full liquid diet or soft diet tonight -Heat compress and massage -Received IV Zosyn- Day 2 -IV Fluids -Oral maxillofacial surgery inputs appreciated- For discharge in AM on Clindamycin 300 mg TID X 7 days, Vicodin 5/325 mg 4-6 hours prn for pain Elevated BP No diagnosis of HTN Monitor outpatient Life style modifications DVT PROPHYLAXIS SCDS DISPOSITION Eager to be discharged Ok to discharge home today Establish care with PCP, Dentist in home [facility] Subjective Patient is doing well. Pain is tolerable. Able to open his mouth better Tolerated diet well Denies any fever, Eager to be discharged Physical Exam Physical Exam: GENERAL- AAOX3, No acute distress HEENT- S/P I & D and removal of tooth, Trismus improved. No redness , mild swelling + LUNGS- Air entry bilaterally equal. No rales, rhonchi, crackles, wheezes heard. HEART- Regular rate and rhythm. No murmurs Results & Data Vital Signs (Past 12 Hours) Vital Signs Temp Pulse Resp BP Pulse Ox 04/14/19 11:14 36.3 C L 59 L 15 138/84 97 04/14/19 07:03 36.5 C 67 15 122/76 97 04/14/19 03:18 36.7 C 64 16 129/79 97
--- NOTE | 2019-04-14 14:18 | Discharge Summary ---
Date of Service April 14, 2019 Admission HPI Per Admitting Provider HISTORY OF PRESENT ILLNESS: This is a 29-year-old male with no past medical history who presents with dental abscess. Patient is having pain in his right side of his lower jaw for the last 3-4 days. 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 He went to outside hospital and was prescribed amoxicillin which he started taking yesterday, but he was not feeling better. Still having swelling and severe pain and was having temperatures, so he came here and was spiking temperature at T-max 39. In the ER, dental block was given and I and D was attempted , but it was not successful. ER physician spoke with oral maxillofacial surgery and advised to be admitted to the hospital and will be evaluated in the a.m. Currently, patient complains of severe pain and asks for pain medications. Has headaches, no blurred visions. Has earaches on the right side, some sore throat, some cough, some mucus coming out. He had some chest pain on the left side, he thinks he pulled a muscle a few days ago. No shortness of breath. No nausea, no vomiting, no abdominal pain. Normal bowel and bladder movements. No blood in the stools or black stools. No burning micturition. No swelling in the legs, no rash. Currently resting comfortably and hemodynamically stable. Principal Diagnosis 1. Dental abscess 2. Status post Incision and drainage and removal of 3 teeth 3. Elevated Blood pressure with no hypertension diagnosis Discharge Exam GENERAL- AAOX3, No acute distress HEENT- S/P I & D and removal of tooth, Trismus improved. No redness , mild swelling + LUNGS- Air entry bilaterally equal. No rales, rhonchi, crackles, wheezes heard. HEART- Regular rate and rhythm. No murmurs Discharge Data Allergies Allergy/AdvReac Type Severity Reaction Status Date / Time amoxicillin [From Amoxil] AdvReac Mild Nausea Verified 04/12/19 21:05 Consultations 04/12/19 22:37 ED Decision to Admit Stat 04/13/19 08:00 Consult Oromaxillofacial Surgery Routine Procedures Performed Operation Date: 04/13/19 12:00 Actual Procedures p Incision and Drainage with Removal of Multiple Carious Teeth(Not Applicable) - Yony Carey DMD Hospital Course (1) Dental abscess: Patient is a 29-year-old male with no past medical history who presented with dental abscess. Went to a hospital where he was prescribed amoxicillin, took it for a day, continued to have pain, started spiking fever 39 C. Unsuccessful attempt of I&D was done in ED. Failed outpatient rx with amoxicillin S/P I & D of dental abscess - lower right side with extraction of teeth # 32, 18, 13 -Tmax 39.5 C; No leucocytosis -Full liquid diet or soft diet tonight -Heat compress and massage -Received IV Zosyn- Day 2 -IV Fluids -Oral maxillofacial surgery inputs appreciated- For discharge in AM on Clindamycin 300 mg TID X 7 days, Vicodin 5/325 mg 4-6 hours prn for pain Elevated BP No diagnosis of HTN Monitor outpatient Life style modifications DVT PROPHYLAXIS SCDS DISPOSITION Eager to be discharged Ok to discharge home today Establish care with PCP, Dentist in home [facility] Total Time Total Time Spent Total Time Spent (In Minutes): 33 minutes Discharge Plan Discharge Items Patient Disposition: Home - Self-Care Reason For Visit: FEVER Discharge Diagnosis: Dental abscess S/P I&D of dental abscess and extraction of teeth x 3 Condition: Good Discharge Goals: Decrease discomfort Activity: Resume your previous activity Activity Comment: soft non chew diet, heat and massage to right face, DO NOT USE ICE Lifting: Gradually increase as tolerated Bathing: No limitations Exercise/Sports: Gradually increase as tolerated Driving/Machine Use: No limitations Driving/Machine Use Comment: NO driving if you take the Vicodin Non-emergency contact: Surgeon Call non-emergency contact if: you have a fever, your temperature is above 101, your wound has increased redness and your wound has increased drainage Follow-up/Referrals: Yony Carey, DMD [Physician] - PCP,NO [Primary Care Provider] - Diet: Low Sodium (2gm) and See below Diet Texture: Mechanical soft (ground) Addtl Provider Instructions: You were admitted to hospital for dental abscess You had incision and drainage of abscess right side, extraction of teeth 32, 18, [address] Carey, Oral maxillo facial surgeon on 04/13/19 MEDICATION CHANGES New medication- Clindamycin as directed x 7 days New medication- Vicodine q 8 hours only if needed for severe pain For mild- moderate pain, Ibuprofen 600 mg three times a day as needed DO NOT DRIVE AFTER HAVING VICODIN MONITOR Blood pressure needs monitoring outpatient ADDITIONAL ACTIVITY RECOMMENDATIONS: * Dyer teeth after every meal. It is very important to keep your mouth clean to prevent infection. SPECIAL CARE INSTRUCTIONS: * apply heat (hot water bottle or heating pad) for the next two days, as often as possible. * Tomorrow start rinsing your mouth with 1/2 teaspoon salt in 8 ounces warm water. This rinse should be used every 4-6 hours. * You may experience slight nausea. To prevent this, never take your medication on an empty stomach. If nauseated, take small sips of moe david until you feel better; then you may start on applesauce and toast. * Some swelling is common. It should gradually decrease within 4-5 days. * A certain amount of bleeding is to be expected. It is often possible to control mild oozing by placing folded gauze over the area and biting down for 30 minutes. If you are unable to control excessive bleeding, call Dr Carey at * You may experience some discomfort for a few days. If pain or swelling increases, call your doctor immediately at Prescriptions: New clindamycin HCl 150 mg Capsule 450 mg PO Q8 7 Days Qty: 63 RF: 0 hydrocodone-acetaminophen [Vicodin] 5-300 mg tablet 1 tab PO Q8H PRN (Reason: pain (scale score 7-10)) Qty: 10 RF: 0 Discontinued ibuprofen [Advil] 200 mg Tablet 800 mg PO Q8H PRN (Reason: Fever Or Pain) RF: 0 Stand-Alone Forms: My [facility], Opioid Pain Management, Work/School Release (Inpt) Yao/Other Patient Handouts: ED Abscess Dental, ED Abscess Tooth Discharge Orders: Discharge Order (Routine); Ordered 04/14/19 Ordered By: María Elena Desouza Admission Data Admit Date/Time: 04/12/19 23:18 Attending Provider: María Elena Desouza Admit Provider: Codey Leach Primary Care Provider: PCP,NO Other Providers: Codey Leach ; Yony Carey Service: Medical
--- NOTE | 2019-04-16 04:05 | Operative Report ---
DATE OF OPERATION: 04/13/2019 DATE OF OPERATION: 04/13/2019 ADMITTING DIAGNOSES: Acute right side subperiosteal, submandibular and masseteric space infection secondary to fractured and infected teeth which would be tooth #32. The patient also had a draining fistula and early infection of the upper left and lower left side involving teeth #18 and #13. POSTOPERATIVE DIAGNOSES: Acute right side subperiosteal, submandibular and masseteric space infection secondary to fractured and infected teeth which would be tooth #32. The patient also had a draining fistula and early infection of the upper left and lower left side involving teeth #18 and #13. OPERATION: Incision and drainage of acute subperiosteal, submandibular and masseteric space abscess and extraction of infected teeth #32, 18 and 13. OPERATION IN DETAIL: After this patient was cleared to undergo general anesthesia, brought down to the operating room and placed under general anesthesia via nasotracheal intubation. After adequate anesthesia was obtained, the patient was prepped and draped in the usual manner for incision and drainage of facial infection. At this time, the facial area was prepped in the usual manner and sterile dressings were applied. At this time, a time-out was taken to ensure that we had Jeremiah Weber in the room, which we did and that we had the appropriate positioning, antibiotic delivery and the chart completion and the proper site. Being everyone agreed and the operation now began. Sterile dressings were applied around the facial area and the area was isolated. At this time, an oropharyngeal throat pack was placed. Oral cavity was irrigated, dried, and Peridex mouth rinse was also irrigated into the mouth. A bite block was placed on the left side and I turned my attention now to the lower right side. When Mr. Weber was in the Emergency Room, the Emergency Room physician made a small incision over the right mucobuccal fold and said he did not get any pus. Just from opening his mouth, they put the bite block in and we started to get copious amounts of purulent drainage from the small hole. We cultured both aerobic and anaerobic at this time. I then used local anesthesia in the form of Marcaine with a vasoconstrictor and obtained a block of the inferior alveolar nerve on the right side as well as the left side and the upper left side for area #13. After adequate period of time to allow for hemostasis and local anesthetic effect, I replaced the oropharyngeal throat pack to a dry one. I now used a 15 blade and made an incision along the alveolar ridge where the infected tooth was present. By making the incision along the alveolar ridge and extending it around the adjacent teeth which would be teeth #31 and 30, I now reflected this full thickness mucoperiosteal flap. On doing so, we had copious amounts of very thick purulent discharge. I then spent a lot of time irrigating the subperiosteal space and palpating the subperiosteal space to get more drainage. I then used a periosteal elevator, I went down below the inferior border of the mandible into the submandibular space where I was able to drain some further loculations of pus. I still noticed that we were getting a lot of purulent drainage and I then opened up the lingual aspect as well once again by opening up the lingual aspect, I was able to gain more drainage of this area. I now removed the tooth with the use of dental forceps and the active removing the teeth, a lot more pus to extrude through the socket. 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 Being as it may, I elected not to place a [place] drain given the fact that I am not certain when he will be able to have the drain removed. I was very satisfied with the drainage that we obtained. Now, I used a 2-0 chromic suture to coapt the tissues very lightly to maintain positioning but to allow drainage. I now turned my attention to tooth #18, which once again a flap was made. The bone around the height of contour of these residual impacted roots were now removed with the use of a drill, the tooth was now visualized and removed with the drill and the oral cavity. Once this was done, I now turned my attention to tooth #13. Once again this tooth was residual roots. The incision was made around the neck of the tooth. The bone around the height of contour was removed. The tooth was visualized. When all was said and done, we had completed the procedure. A 2-0 chromic sutures were used to close all of the sites. Please note that the patient's procedure was that of incision and drainage of an acute moderately severe infection of the subperiosteal, submandibular and submasseteric space at facial planes of the right side where he had surgical removal of residual impacted roots of teeth #13, 18, and 32. The patient tolerated the procedure extremely well. He was then allowed to recover in the usual manner. Upon full recovery, the patient was taken to the recovery room breathing in satisfactory condition with all vital signs stable. In the recovery room, I evaluated him to make sure that there was no bleeding and his airway was maintained. At this time, he will be allowed to recover and then be transferred back to the floor. My plan would be to most likely discharge the patient within the next 24 hours. He will be sent home with antibiotics and pain medication and will be requested to see someone when he gets back home to the [place], [place] area for followup and for continuation of his dental needs. I attest to the content of the Intraoperative Record and any orders documented therein. Any exception s are noted below.
== END 2019-04-14 17:55 | disposition home or self-care (01) | DRG 159 ==
LOC: ED 19:50 → 3W 23:18